=== PATIENT | male | born 1950 | race Caucasian/White ===

== ENCOUNTER → 2018-01-10 | Outpatient (CLI) | payer MEDICARE ==
--- NOTE | 2018-01-10 21:51 | CT ---
EXAMINATION TYPE: CT abdomen pelvis w con DATE OF EXAM: 01/10/2018 COMPARISON: None HISTORY: Abdominal pain. History of diverticulitis. CT DLP: 790.7 mGycm, Automated Exposure Control for Dose Reduction was Utilized. CONTRAST: CT scan of the abdomen and pelvis is performed with oral and with IV Contrast, patient injected with 100ml mL of Isovue M300. FINDINGS: LUNG BASES: Dependent atelectasis in both bases is present.. LIVER/GB: No significant abnormality is appreciated. PANCREAS: No significant abnormality is seen. SPLEEN: Spleen is mildly enlarged at 14.6 cm long axis coronal image 53. ADRENALS: No significant abnormality is seen. KIDNEYS: There is simple appearing 3.1 x 2.9 cm exophytic cyst medially lower pole of the right kidne y. There is symmetric color especially uptake and excretion from both kidneys without hydronephrosis bilaterally.. BOWEL: The oral contrast does not reach terminal ileum making evaluation of distal bowel suboptimal. Small bowel feces sign is present in terminal ileum. There is no suspicious small bowel dilatation. F indings are consistent with delayed passage of ingested material to colonic level. Fecal material is seen in nondistended colon. Surgical sutures in the sigmoid colon axial image 61 are present. There a re few scattered diverticula throughout the colon noted. PROSTATE/SEMINAL VESICLES: Prostate gland is enlarged in size bulging of bladder base, BPH as well present. Adjacent left-sided pelvic phleboliths are noted. LYMPH NODES: No greater than 1cm abdominal or pelvic lymph nodes are appreciated. OSSEOUS STRUCTURES: There is straightening of lumbar spine with moderate to advanced disc space narro wing L1-L2, L4-L5, and L5-S1 levels with subchondral cystic change, vacuum disc phenomenon, and endpl ate sclerosis noted. There is facet arthropathy and disc herniations lower lumbar levels contributing to spinal canal effacement. OTHER: There are small fat containing right inguinal hernia. IMPRESSION: No CT evidence for recurrent acute diverticulitis. There are occasional scattered coloni c diverticula noted.
== END | disposition home or self-care (01) ==
LOC: RADCTMAIN 16:14
PROVIDERS: ATTEND Surgery
DX: K57.30 Diverticulosis of large intestine without perforation or abscess without bleeding (principal)
CPT/HCPCS: 82565; 84520; 74177; 36415; Q9967

== ENCOUNTER → 2018-03-19 | Day surgery (SDC) | payer MEDICARE ==
[2018-03-12 14:17] VITALS: BMI 25.9
[~2018-03-19] MED LIST: BUPIVACAIN-EPI 0.25%-1:200,000 30 ML VIAL SQ ONE; GLYCOPYRROLATE 0.2 MG/ML 2 ML VIAL ONE; HEPARIN SODIUM,PORCINE 5,000 UNIT/ML 1 ML VIAL SQ ONE; HYDROCORTISONE SUCCINATE 100 MG/2 ML VIAL IV ONE; HYDROmorphone 0.5 MG/0.5 ML SYRINGE IVP PRN; KETOROLAC 30 MG/ML 1 ML VIAL ONE; LIDOCAINE 1% 20 ML VIAL (10MG/ML) FOR IV START INTRADERMA PRN; LIDOCAINE 1% INJ 10MG/ML (20 ML MDV) ONE; MIDAZOLAM 2 MG/2 ML VIAL IV ONE; MIDAZOLAM 2 MG/2 ML VIAL ONE; NEOSTIGMINE 1 MG/ML 10 ML VIAL ONE; ONDANSETRON 4 MG/2 ML VIAL IVP ONE; ONDANSETRON 4 MG/2 ML VIAL ONE; PHENYLEPHRINE-0.9% NACL SYG 1 MG/10 ML SYRINGE ONE; PROPOFOL 10 MG/ML 20 ML VIAL IV ONE; ROCURONIUM BROMIDE 10 MG/ML 10 ML VIAL IV ONE; ROPIVACAINE 5 MG/ML 30 ML VIAL ONE; ceFAZolin IN SWFI 2 GM/20 ML SYRINGE IVP ONE; fentaNYL (PF) 50 MCG/ML 2 ML AMP ONE
[2018-03-19] MEDS: LACTATED RINGERS 1,000 ML IV SCH ×2 (07:33→07:35)
--- NOTE | 2018-03-19 08:40 | P.GSHP ---
History of Present Illness H&P Date: 03/19/18 Chief Complaint: Right inguinal hernia This is a 67-year-old male who presents today for laparoscopic robotic-assisted repair of right inguinal hernia. Patient's complaints of pain in bilateral groins. He was seen Onofre found have a small right inguinal hernia. Past Medical History Past Medical History: Rheumatoid Arthritis (RA) Additional Past Medical History / Comment(s): DIVERTICULOSIS History of Any Multi-Drug Resistant Organisms: None Reported Past Surgical History: Back Surgery, Bowel Resection, Joint Replacement, Orthopedic Surgery Additional Past Surgical History / Comment(s): RT TKA, RT KNEE SX X 4, RT ELBOW SX, BILAT ROTATOR CUFF REPAIR, CERVICAL FUSION,BILAT CATARACTS REMOVED, COLONOSCOPY, 8 INCHES OF COLON REMOVED, COLONOSCOPY Past Anesthesia/Blood Transfusion Reactions: Previous Problems w/ Anesthesia, Motion Sickness Additional Past Anesthesia/Blood Transfusion Reaction / Comment(s): B/P BOTTOMED OUT WITH EPIDURAL Smoking Status: Former smoker - Past Family History Mother Family Medical History: No Reported History Medications and Allergies Home Medications Medication Instructions Recorded Confirmed Type predniSONE 5 mg PO DAILY 01/23/18 03/19/18 History Aspirin [Adult Low Dose Aspirin EC] 81 mg PO DAILY 03/12/18 03/19/18 History Multivitamin [Men's Multi-Vitamin] 1 tab PO DAILY 03/12/18 03/19/18 History Allergies Allergy/AdvReac Type Severity Reaction Status Date / Time adhesive tape AdvReac Rash/Hives Verified 03/19/18 06:51 Surgical - Exam Vital Signs Temp Pulse Resp BP Pulse Ox 97.3 F L 56 L 16 116/70 98 03/19/18 06:52 03/19/18 06:52 03/19/18 06:52 03/19/18 06:52 03/19/18 06:52 - General well developed, no distress - Eyes PERRL - ENT normal pinna - Neck no masses - Respiratory normal expansion - Cardiovascular Rhythm: regular - Abdomen Reducible right inguinal hernia Abdomen: soft, non tender Assessment and Plan Assessment: Right inguinal hernia. We'll perform laparoscopic robotic-assisted repair.
--- NOTE | 2018-03-19 10:53 | P.OP ---
Date of Procedure: 03/19/18 Preoperative Diagnosis: Right inguinal hernia Postoperative Diagnosis: Right inguinal hernia Adhesions Procedure(s) Performed: Laparoscopic robotic -assisted Repair of Right inguinal hernia Laparoscopic lysis of adhesion Excision of right cord lipoma Anesthesia: AMY Surgeon: Jorge Davis Estimated Blood Loss (ml): 5 Pathology: other (Right cord lipoma) Condition: stable Disposition: PACU Description of Procedure: The patient was placed on the operating table in the supine position. The patient received general anesthesia. The patient's abdomen was prepped and draped in usual sterile fashion. The skin was anesthetized 1% local Xylocaine at the incision sites. Using an 11 blade a skin incision was made at the umbilicus. The fascia was grasped with a Jonas and then the peritoneal cavity was entered with the Veress needle. Position of the Veress needle was confirmed with a positive drop test. After adequate insufflation a 5 mm trocar was placed into the peritoneal cavity. The Laparoscope was placed the peritoneal cavity. And a robotic 8 mm trocar was placed in the right lateral position and then another 8 mm robotic trochars placed in the left lateral position. The original 5 mm trocar was exchanged for a 12 mm trocar. The patient was placed in reverse Trendelenburg and then the patient was docked to the robot. There was adhesive band located in the left lower quadrant. This was lysed with sharp dissection. Next the peritoneum over top of the hernia was incised and then using blunt and sharp dissection and electrocautery the hernia sac was dissected free from the floor of the inguinal canal. The hernia sac was completely reduced into the peritoneal cavity. There was a cord lipoma and this was dissected free from the cord structures. And then using the Pro clam grader mesh the hernia was repaired. The peritoneum was then sutured with 2-0V lock suture. The patient was then undocked the robot. The needle and cord lipoma was withdrawn from the peritoneal cavity. The umbilical trocar site was closed with 0 Ethibond suture. The skin was closed interrupted 3-0 Monocryl suture. Dermabond dressing was applied. Patient was sent to recovery in stable condition.
[2018-03-19 10:58] VITALS: TEMP 96.8
[2018-03-19 11:22] VITALS: RESP 16
[2018-03-19 12:28] VITALS: BP 96/68; PULSE 55
--- NOTE | 2018-03-20 09:03 | P.ONQ ---
Anesthesiology Proc Note - PNB - Peripheral Nerve Block Performed Right Transversus Abdominis Single Time Out Performed: Yes Procedure Start Time: 07:48 Procedure Stop Time: 07:55 Indication: Acute Post-Operative Pain, Requested by physician Sedation Type: Sedate with meaningful contact maintained Preparation: Sterile Prep Needle Size: 50mm (2") Needle Gauge: 21 Technique: Ultrasound Injectate: 0.5% Ropivacaine (see comment for volume) (ropi .5% 20cc) Blood Aspirated: No Pain Paresthesia on Injection Noted: No Resistance on Injection: Normal Events: Uneventful and Well Tolerated
== END | disposition home or self-care (01) ==
LOC: OR 06:27
PROVIDERS: ATTEND Surgery
DX: K40.90 Unilateral inguinal hernia, without obstruction or gangrene, not specified as recurrent (principal); M06.9 Rheumatoid arthritis, unspecified; K66.0 Peritoneal adhesions (postprocedural) (postinfection); D17.6 Benign lipomatous neoplasm of spermatic cord; Z87.891 Personal history of nicotine dependence; Z79.82 Long term (current) use of aspirin; Z96.653 Presence of artificial knee joint, bilateral; Z90.49 Acquired absence of other specified parts of digestive tract; Z98.1 Arthrodesis status; Z79.52 Long term (current) use of systemic steroids
CPT/HCPCS: 88304; 49650; 64486; J2250; J1644; J2710; J1720; J2405; J2001; J3010; J1885; J2795; J2370; J2704; J0690